=== PATIENT | female | born 1985 ===

== ENCOUNTER 2017-07-30 15:03 | Emergency (ER) | payer OTHER ==
[2017-07-30 15:03] VITALS: BMI 26.8
[2017-07-30 15:20] VITALS: BP 134/83; PULSE 76; RESP 18; TEMP 98; O2SAT 96
--- NOTE | 2017-07-30 15:25 | C.PDOC ---
History Of Present Illness 32 yo female come in for evaluation of urinary frequency, hesitancy and pain on urination gradually developed for past few days.Today noted some blood in urine. Otherwise, pt denies fever, chills, recent illness or abx use, abd. pain , N/V/D, back pain, vaginal irritation/lesions or discharges, denies recent HAND DEVELOPER procedures. Ambulate to ED for evaluation, not in any apparent distress. Time Seen by Provider: 07/30/17 15:23 Chief Complaint (Nursing): Female Genitourinary History Per: Patient Onset/Duration Of Symptoms: Gradual Past Medical History Reviewed: Historical Data, Nursing Documentation, Vital Signs Vital Signs: Last Vital Signs Temp 98 F 07/30/17 15:16 Pulse 76 07/30/17 15:16 Resp 18 07/30/17 15:16 BP 134/83 07/30/17 15:16 Pulse Ox 96 07/30/17 16:11 - Medical History PMH: Gastritis Denies: Chronic Kidney Disease Surgical History: Endoscopy - [facility] Procedures EXCISION OF BILATERAL OVARIES, OPEN APPROACH (05/27/15) RELEASE BILATERAL OVARIES, OPEN APPROACH (05/27/15) RELEASE PERITONEUM, OPEN APPROACH (05/27/15) RELEASE UTERINE SUPPORTING STRUCTURE, OPEN APPROACH (05/27/15) Family History: States: Unknown Family Hx - Social History Hx Tobacco Use: No Hx Alcohol Use: No Hx Substance Use: No - Immunization History Hx Tetanus Toxoid Vaccination: No Hx Influenza Vaccination: No Hx Pneumococcal Vaccination: No Review Of Systems Except As Marked, All Systems Reviewed And Found Negative. Constitutional: Negative for: Fever, Chills ENT: Negative for: Throat Pain, Throat Swelling Cardiovascular: Negative for: Chest Pain Respiratory: Negative for: Cough, Shortness of Breath, Wheezing Gastrointestinal: Positive for: Nausea, Abdominal Pain. Negative for: Vomiting , Diarrhea Genitourinary: Positive for: Dysuria, Frequency. Negative for: Incontinence, Hematuria, Vaginal Discharge, Vaginal Bleeding Musculoskeletal: Negative for: Neck Pain, Back Pain Skin: Negative for: Rash Neurological: Negative for: Weakness, Numbness, Altered Mental Status, Headache , Dizziness Physical Exam - Physical Exam Appears: Well, Non-toxic, No Acute Distress Skin: Normal Color, Warm, Dry, No Rash Head: Normacephalic Eye(s): bilateral: PERRL Nose: No Flaring, No Discharge Oral Mucosa: Moist Throat: No Erythema, No Drooling Neck: Supple Cardiovascular: Rhythm Regular Respiratory: No Decreased Breath Sounds, No Accessory Muscle Use, No Stridor, No Wheezing Gastrointestinal/Abdominal: Soft, Tenderness (mild suprapubic), No Distention, No Guarding, No Rebound Back: No CVA Tenderness Pelvic: Other (refused) Extremity: No Deformity, No Swelling Neurological/Psych: Oriented x3, Normal Speech ED Course And Treatment O2 Sat by Pulse Oximetry: 96 Pulse Ox Interpretation: Normal Progress Note: On re-evalution, pt is afebrile, hemodynamicaly stable. NOn- toxic. Tolerate Po well in ED. Neck: Supple, (-)meningeal sign. ENT: no acute findings. Lungs: CTA B/L, BS equal B/L. Abd: benign, (-) rebouds, (-) guarding, (-) localized tenderness. Back: (-) CVA tenderness. UA results review and (+) nitrate. Pt has clinical findings c/w UTI. pt advised. ref. to F/u with PMD, HAND DEVELOPER in 2 -3 days for re-eval. return to ED if any new changes. Disposition Counseled Patient/Family Regarding: Studies Performed, Diagnosis, Need For Followup, Rx Given - Disposition Referrals: Jaime Hamilton [Staff Provider] - Disposition: HOME/ ROUTINE Disposition Time: 16:01 Condition: STABLE Additional Instructions: ENCOURAGE FLUIDS CRANBERRY SUPPLEMENT FOLLOW UP WITH HAND DEVELOPER IN 2-3 DAYS FOR RE-EVALUATION. RETURN TO ED IF ANY WORSENING OR NEW CHANGES. Prescriptions: Cranberry Fruit Extract [Cranberry] 500 mg PO BID #10 capsule Nitrofurantoin Macrocrystals [Macrobid] 100 mg PO BID #14 cap Phenazopyridine HCl [Pyridium] 200 mg PO BID #6 tablet Instructions: Urinary Tract Infection in Women (ED) Forms: [facility] (Estonian) - Clinical Impression Clinical Impression: UTI (urinary tract infection)
[2017-07-30 15:55] LABS: RBC URINE 688 /hpf (0-3); URINE BILIRUBIN NEGATIVE (NEGATIVE); URINE BLOOD 3+ (NEGATIVE); URINE COLOR Yellow (YELLOW); URINE GLUCOSE (UA) NORMAL (Normal); URINE KETONE NEGATIVE (NEGATIVE); URINE LEUKOCYTE ESTERASE 3+ Leu/uL (Negative); URINE PROTEIN 2+ mg/dL (NEGATIVE); URINE UROBILINOGEN NORMAL mg/dL (0.2-1.0); WBC URINE 637 /hpf (0-5)
== END 2017-07-30 16:43 | disposition home or self-care (01) ==
LOC: C.ER 15:03
DX: N39.0 Urinary tract infection, site not specified (principal)

== ENCOUNTER 2017-09-18 15:03 | Emergency (ER) | payer OTHER ==
[2017-09-18 15:03] VITALS: BMI 26.6
[2017-09-18 15:20] VITALS: BP 144/83; PULSE 104; RESP 20; TEMP 99.8; O2SAT 99
[2017-09-18] MEDS ORDERED: Amoxicillin-Clav 875-125 mg Tab PO STA (16:15)
[2017-09-18] MEDS ORDERED: Amoxicillin-Clav 875-125 mg Tab PO ONE ×2 (16:36)
--- NOTE | 2017-09-18 16:37 | C.PDOC ---
History Of Present Illness 32-year-old female w/PMhx of seasonal allergy presents to the emergency department with complaints of two-week duration of sneezing an nasal congestion. Patient states she went to work this morning, when she developed a fever, sore throat, body aches and more nasal congestion, resulting in her coming to the ED for evaluation. Patient denies any nausea/vomiting, diarrhea, dizziness, back pain, symtpoms, or any other associated symptoms. No other complaints at this time. No meds taken at home for symptoms. Time Seen by Provider: 09/18/17 15:57 Chief Complaint (Nursing): Flu-like Symptoms History Per: Patient History/Exam Limitations: no limitations Onset/Duration Of Symptoms: Days Current Symptoms Are (Timing): Still Present Past Medical History Reviewed: Historical Data, Nursing Documentation, Vital Signs Vital Signs: Last Vital Signs Temp 99.8 F H 09/18/17 15:17 Pulse 104 H 09/18/17 15:17 Resp 20 09/18/17 15:17 BP 144/83 09/18/17 15:17 Pulse Ox 99 09/18/17 16:42 - Medical History PMH: Gastritis Denies: Chronic Kidney Disease Surgical History: Endoscopy - [facility] Procedures EXCISION OF BILATERAL OVARIES, OPEN APPROACH (05/27/15) RELEASE BILATERAL OVARIES, OPEN APPROACH (05/27/15) RELEASE PERITONEUM, OPEN APPROACH (05/27/15) RELEASE UTERINE SUPPORTING STRUCTURE, OPEN APPROACH (05/27/15) Family History: States: No Known Family Hx - Social History Hx Tobacco Use: No Hx Alcohol Use: No Hx Substance Use: No - Immunization History Hx Tetanus Toxoid Vaccination: No Hx Influenza Vaccination: No Hx Pneumococcal Vaccination: No Review Of Systems Constitutional: Positive for: Fever, Chills, Malaise ENT: Positive for: Nose Discharge, Nose Congestion, Throat Pain, Other (Sneezing ). Negative for: Ear Pain Cardiovascular: Negative for: Chest Pain, Palpitations Respiratory: Negative for: Shortness of Breath Gastrointestinal: Negative for: Nausea, Vomiting, Diarrhea Musculoskeletal: Negative for: Back Pain Neurological: Negative for: Weakness, Dizziness Physical Exam - Physical Exam Appears: Well, Non-toxic, No Acute Distress Skin: Normal Color, Warm, Dry, No Rash Head: Normacephalic Eye(s): bilateral: PERRL Ear(s): Bilateral: Normal Nose: No Flaring, Discharge (clear, scant B/L), Other ((+)B/L mild paranasal tenderness, no edema, no erythema) Oral Mucosa: Moist, No Drooling Tongue: Normal Appearing Lips: Normal Appearing Throat: No Erythema, No Drooling Neck: Trachea Midline, Supple, Other ((-)meningeal signs) Cardiovascular: Rhythm Regular, No Murmur Respiratory: No Decreased Breath Sounds, No Accessory Muscle Use, No Wheezing Gastrointestinal/Abdominal: Soft, No Tenderness Extremity: Normal ROM, No Deformity, No Swelling Neurological/Psych: Oriented x3, Normal Speech ED Course And Treatment O2 Sat by Pulse Oximetry: 99 (RA) Pulse Ox Interpretation: Normal Progress Note: On re-eval, pt is afebrile, hemodynamicaly stable. NOn-toxic. Tolerate PO well in ED. [id number]% ra. ENT: exam c/w rhinosinusitis. uvula midline, no edema. neck: Supple, (-) meningeal sign. Lungs: CTA B/L, BS equal B/L. Abd: benign. Neuorlogicaly intact. Pt advised on course of ds. ref. to f/u with PMD, ENT in 2-3 days for re-eval,. return to ED if any worsening or new changes. Disposition Counseled Patient/Family Regarding: Diagnosis, Need For Followup, Rx Given - Disposition Referrals: [facility] [Outside] Madan Benz MD [Staff Provider] - Disposition: HOME/ ROUTINE Disposition Time: 16:55 Condition: STABLE Additional Instructions: ENCOURAGE FLUIDS TAKE MEDICATION PRESCRIBED FOLLOW UP WITH PMD IN 2-3 DAYS FOR RE-EVALUATION. RETURN TO ED IF ANY WORSENING OR NEW CHANGES. Prescriptions: Amoxicillin/Clavulanate [Augmentin 875 MG-125 MG] 1 tab PO BID #14 tab Loratadine [Claritin] 10 mg PO DAILY #10 tab Prednisone [Deltasone] 40 mg PO DAILY 3 Days #6 tablet Instructions: Rhinosinusitis (ED) Forms: [facility] (Setsw[place]) - Clinical Impression Clinical Impression: Sinusitis - Scribe Statement The provider has reviewed the documentation as recorded by the Scribe (Mago Contreras) All medical record entries made by the Scribe were at my direction and personally dictated by me. I have reviewed the chart and agree that the record accurately reflects my personal performance of the history, physical exam, medical decision making, and the department course for this patient. I have also personally directed, reviewed, and agree with the discharge instructions and disposition.
== END 2017-09-18 17:29 | disposition home or self-care (01) ==
LOC: C.ER 15:03
DX: J32.9 Chronic sinusitis, unspecified (principal); F17.210 Nicotine dependence, cigarettes, uncomplicated

== ENCOUNTER 2018-01-17 14:40 | Emergency (ER) | payer OTHER ==
[2018-01-17 14:40] VITALS: BMI 27.1
[2018-01-17 14:43] VITALS: O2SAT 100
[2018-01-17 15:09] LABS: BASO % 0.7 % (0.0-2.0); EOS # 0.1 K/uL (0.0-0.7); EOS % 1.6 % (0.0-4.0); HEMOGLOBIN 12.3 g/dL (11.0-16.0); LYMPH # 2.4 K/uL (1.0-4.3); MEAN CELL VOLUME 81.9 fL (81.0-99.0); MEAN CORPUSCULAR HEMOGLOBIN 27.3 pg (27.0-31.0); MEAN CORPUSCULAR HGB CONC 33.3 g/dL (33.0-37.0); MEAN PLATELET VOLUME 8.2 fL (7.2-11.7); MONO # 0.5 K/uL (0.0-0.8); MONO % 7.5 % (0.0-10.0); NEUT % 56.2 % (50.0-75.0); NRBC % 0.2 % (0.0-2.0); RBC 4.51 Mil/uL (3.80-5.20); RED CELL DISTRIBUTION WIDTH 14.8 % (11.5-14.5)
[2018-01-17 15:40] LABS: ALB/GLOB RATIO 1.3 (1.0-2.1); ALBUMIN 5.1 g/dL (3.5-5.0); ALT/SGPT 44 U/L (9-52); AST/SGOT 41 U/L (14-36); BLOOD UREA NITROGEN 13 mg/dL (7-17); CALCIUM 9.9 mg/dl (8.6-10.4); GFR AFRICAN-AMERICAN > 60; GFR NON-AFRICAN AMERICAN > 60
--- NOTE | 2018-01-17 15:40 | RAD ---
PROCEDURE: CHEST RADIOGRAPH, 1 VIEW HISTORY: chest pain COMPARISON: Chest radiograph dated 05/19/2015. FINDINGS: LUNGS: Clear. PLEURA: No pneumothorax or pleural fluid seen. CARDIOVASCULAR: Normal. OSSEOUS STRUCTURES: No significant abnormalities. VISUALIZED UPPER ABDOMEN: Normal. OTHER FINDINGS: None. IMPRESSION: No active disease.
[2018-01-17 16:56] VITALS: BP 135/85; PULSE 75; RESP 16; TEMP 99.1
--- NOTE | 2018-01-17 21:15 | C.PDOC ---
History Of Present Illness 32 year old female presents to the emergency department with complaints of a mild headache along with an elevated blood pressure. Her blood pressure was elevated while she was at work, and a reading was obtained via an automated wrist machine and was 160 systolic. Patient reports that she did not take any medications prior to arrival, and denies chest pain, shortness of breath, nausea , vomiting, and blurry/double vision. Chief Complaint (Nursing): Weakness/Neurological Deficit History Per: Patient History/Exam Limitations: no limitations Onset/Duration Of Symptoms: Hrs Past Medical History Reviewed: Historical Data, Nursing Documentation, Vital Signs Vital Signs: Last Vital Signs Temp 99.1 F 01/17/18 16:54 Pulse 75 01/17/18 16:54 Resp 16 01/17/18 16:54 BP 135/85 01/17/18 16:54 Pulse Ox 100 01/17/18 21:23 - Medical History PMH: No Chronic Diseases, Gastritis Denies: Chronic Kidney Disease Surgical History: Endoscopy - [facility] Procedures EXCISION OF BILATERAL OVARIES, OPEN APPROACH (05/27/15) RELEASE BILATERAL OVARIES, OPEN APPROACH (05/27/15) RELEASE PERITONEUM, OPEN APPROACH (05/27/15) RELEASE UTERINE SUPPORTING STRUCTURE, OPEN APPROACH (05/27/15) Family History: States: No Known Family Hx - Social History Hx Tobacco Use: No Hx Alcohol Use: No Hx Substance Use: No - Immunization History Hx Tetanus Toxoid Vaccination: No Hx Influenza Vaccination: No Hx Pneumococcal Vaccination: No Review Of Systems Except As Marked, All Systems Reviewed And Found Negative. Eyes: Negative for: Vision Change Cardiovascular: Negative for: Chest Pain Respiratory: Negative for: Shortness of Breath Gastrointestinal: Negative for: Nausea, Vomiting Neurological: Positive for: Headache Physical Exam - Physical Exam Appears: Non-toxic, No Acute Distress Skin: Warm, Dry Head: Atraumatic, Normacephalic Eye(s): bilateral: Normal Inspection Nose: Normal Oral Mucosa: Moist Neck: Normal Chest: Symmetrical Cardiovascular: Rhythm Regular Respiratory: Normal Breath Sounds, No Rales, No Rhonchi, No Wheezing Gastrointestinal/Abdominal: Normal Exam, Soft, No Tenderness Neurological/Psych: Oriented x3, Normal Speech, Normal Cognition ED Course And Treatment - Laboratory Results Result Diagrams: 01/17/18 15:02 01/17/18 15:02 O2 Sat by Pulse Oximetry: 100 (RA) Pulse Ox Interpretation: Normal - Radiology CXR: Viewed By Me, Read By Radiologist CXR Interpretation: Yes: No Acute Disease Progress Note: Plan: EKG. CMP. Troponin. CBC. D-Dimer. CXR One View. Flexeril. Toradol. HCG. Upon re-evaluation, patient reports feeling better. Disposition - Disposition Referrals: Geovanna García MD [Staff Provider] - Disposition: HOME/ ROUTINE Disposition Time: 16:20 Condition: GOOD Additional Instructions: BRADY BAILEY, thank you for letting us take care of you today. Your provider was Collins Zafar DO. The emergency medical care you received today was directed at your acute symptoms. If you were prescribed any medication , please fill it and take as directed. It may take several days for your symptoms to resolve. Return to the Emergency Department if your symptoms worsen , do not improve, or if you have any other problems. Please contact your doctor or call one of the physicians/clinics you have been referred to that are listed on the Patient Visit Information form that is included in your discharge packet. Bring any paperwork you were given at discharge with you along with any medications you are taking to your follow up visit. Our treatment cannot replace ongoing medical care by a primary care provider outside of the emergency department. Thank you for allowing the [facility] team to be part of your care today. Follow up with your primary care doctor in 2-3 days for a blood pressure check and re-evaluation and further management. Prescriptions: Cyclobenzaprine [Cyclobenzaprine HCl] 10 mg PO Q8 PRN #20 tab PRN Reason: Muscle Spasm Ibuprofen [Motrin] 600 mg PO Q6 PRN #20 tab PRN Reason: Pain, Moderate (4-7) Instructions: Muscle and Bone Pain (DC) Forms: [employer] ([place]ian) - Clinical Impression Clinical Impression: Headache - Scribe Statement The provider has reviewed the documentation as recorded by the Scribe (Jad Castellon) Provider Attestation: All medical record entries made by the Scribe were at my direction and personally dictated by me. I have reviewed the chart and agree that the record accurately reflects my personal performance of the history, physical exam, medical decision making, and the department course for this patient. I have also personally directed, reviewed, and agree with the discharge instructions and disposition.
== END 2018-01-17 17:06 | disposition home or self-care (01) ==
LOC: C.ER 14:40
DX: R51 Headache (principal)
CPT/HCPCS: 71045; 80053; 82948; 84484; 84703; 85025; 85378; 96374; 99285; J1885